=== PATIENT | female | born 1995 | race African-American/Black ===

== ENCOUNTER 2018-06-05 15:44 | Emergency (ER) | payer BC ==
[~2018-06-05] VITALS: Ht 172.7 cm; Wt 86.2 kg
[~2018-06-05 15:44] MED LIST: ALAVERT10 MG; BACTRIM DS TAB1 EACH PO; BACTROBAN CREAM30 G1 TOP; BENADRYL25 MG PO; DIFLUCAN150 M1 PO; DIFLUCAN150 MG PO; FLAGYL500 MG PO; KEFLEX250 MG PO; MACROBID 100 M100 M2 PO; MEDROLDOSEPACK PO; NOHOMEMEDICATIONS; PREDNISONE50 MG PO; TRIAMCINOLONE 080 G3 TOP; TRIAMCINOLONE A80 G2 TOP; ULTRAM 50MG TAB50 MG PO
[2018-06-05 16:11] LABS: URINE BILIRUBIN NEGATIVE (Negative); URINE BLOOD NEGATIVE (Negative); URINE CLARITY CLEAR; URINE COLOR YELLOW; URINE GLUCOSE-RANDOM NEGATIVE (Negative); URINE KETONES NEGATIVE (Negative); URINE LEUKOCYTES-REFLEX NEGATIVE (Negative); URINE NITRITE-REFLEX NEGATIVE (Negative); URINE PROTEIN NEGATIVE (Negative); URINE SPECIFIC GRAVITY >= 1.030 (1.005-1.030); URINE UROBILINOGEN 0.2 E.U./dl (0.2-1.0)
[2018-06-05 16:57] VITALS: BP 109/73
== END 2018-06-05 16:58 | disposition home or self-care (01) ==
LOC: M.ERS 15:44
PROVIDERS: Nurse Practitioner Family
DX: N76.0 Acute vaginitis (principal)

== ENCOUNTER 2019-07-09 17:53 | Emergency (ER) | payer OTHER ==
[~2019-07-09] VITALS: Ht 172.7 cm; Wt 90.7 kg
[2019-07-09] MEDS ORDERED: FLEXERIL PO (19:12)
[2019-07-09] MEDS ORDERED: IBUPROFEN 800800 M1 PO (19:12)
[2019-07-09 19:34] VITALS: BP 139/73
== END 2019-07-09 19:35 | disposition home or self-care (01) ==
LOC: M.ERS 17:53
DX: S29.012A Strain of muscle and tendon of back wall of thorax, initial encounter (principal); V49.59XA Passenger injured in collision with other motor vehicles in traffic accident, initial encounter; Y93.89 Activity, other specified; Y92.89 Other specified places as the place of occurrence of the external cause; Y99.8 Other external cause status